=== PATIENT | female | born 1975 | race Caucasian/White ===

== ENCOUNTER 2016-08-22 18:44 | Emergency (ER) | payer SELFPAY ==
--- NOTE | 2016-08-22 18:52 | PDOC ---
Chest Pain HPI - General Chief Complaint: Chest Pain Stated Complaint: CHEST PAIN Date Seen by Provider: 08/22/16 Time Seen by Provider: 18:52 - History of Present Illness Initial Comments: Ms. Chinchilla is a 41-year-old woman coming in today with chest pain. The chest pain occurred yesterday afternoon while at rest. It lasted about half an hour and then went away on its own. Was located over the integrity of the front of her chest radiating to her neck as well as both of her arms. It did not bother her again until today at 4 PM when the chest pain recurred again it was over the entirety of the front of her chest radiating into both upper arms and up into her neck. It was associated with nausea at the time which has since resolved. She never was lightheaded she does not feel diaphoretic. As right now she states that the worst of the pain is over but she still feels a little bit off. She initially went to urgent care here in [place] and they had a troponin tested there that was around 5 and so they transferred her here for further evaluation and care. Her EKG at the outside facility did not show any ST segment elevations but she did have a Q waves in leads 3 it's unknown if these are new or chronic. They initially gave her a GI cocktail for her symptoms which didn't do a whole lot. When the troponin came back elevated, they gave her 4 baby aspirins. EMS gave her 1 nitroglycerin and at this point in time she is basically chest pain-free. She has no prior history of heart disease - Patient Home Medications Home Medications: Home Medications NK [No Home Medications Reported] 08/22/16 - Patient Allergies Allergies/Adverse Reactions: Allergies Allergy/AdvReac Type Severity Reaction Status Date / Time No Known Allergies Allergy Verified 08/22/16 19:05 Past Medical History - heen HEENT History: Denies History Cardiovascular History: Denies History Respiratory History: Denies History Gastrointestinal History: Denies History Genitourinary History: Denies History Endocrine History: Denies History Musculoskeletal History: Denies History Neurological History: Denies History Blood Disorders: Denies History Cancer History: Denies History Tobacco Use: Never Smoker Alcohol Use: None Substance Use Type: None Additional Family History: Dad had an [place] ROS - Limitations ROS Limitations: No Limitations Constitution: REPORTS: Denies Symptoms Cardiovascular: REPORTS: Chest Pain Respiratory: REPORTS: Denies Resp Symptoms Neurological: REPORTS: Denies Neuro Symptoms Gastrointestinal: REPORTS: Denies GI Symptoms Endocrine: REPORTS: Denies Symptoms Musculoskeletal: REPORTS: Denies MS Symptoms Genitourinary: REPORTS: Denies Symptoms Eyes: REPORTS: Denies Symptoms ENT: REPORTS: Denies Symptoms Skin: REPORTS: Denies Skin Symptoms Lympathic: REPORTS: Denies Lympathic Symptoms Immunologic: POSITIVE: Denies Symptoms Psychiatric: POSITIVE: Denies Psych Symptoms Chest Pain PE - General Appearance General Appearance: REPORTS: Alert, Cooperative, No Acute Distress - HEENT HEENT: POSITIVE: Head Inspection Nml, Eyes Inspection Nml, Ears Inspection Nml, Nose Inspection Nml, PERRL, EOMI - Neck Neck: REPORTS: Normal Inspection - Respiratory Respiratory: REPORTS: No Respiratory Distress, Breath Sounds Normal, Chest Non- Tender - Cardiovascular Cardiovascular: REPORTS: Regular Rate and Rhythm, Heart Sounds Normal, Equal Pulses, Strong Pulses Peripheral Pulses: Radial (R): 2+, Radial (L): 2+, Dorsalis-pedis (R): 2+, Dorsalis-pedis (L): 2+ - Abdomen Abdomen: Soft: (All Quadrants), Normal Bowel Sounds: (All Quadrants), Denies Tenderness: (All Quadrants), No Splenomegaly: (All Quadrants), No Hepatomegaly: (All Quadrants) - Skin Skin: REPORTS: Intact, Normal For Race, No Rash - Extremities Extremity: Non-Tender: (All Extremities), Normal ROM: (All Extremities), Normal Inspection: (All Extremities) - Neurological / Psychological Neurological: POSITIVE: Affect 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, 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, 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 Normal As Tested Chest Pain Progress - Results Reviewed by me Lab Results Reviewed: Yes Lab Results:: Laboratory Results 08/22/16 Range/Units 19:02 WBC 10.41 (4.8-10.8) 10^3/uL RBC 5.56 H (4.20-5.40) 10^6/uL Hgb 16.5 H (12.0-16.0) g/dL Hct 45.8 (37.0-47.0) % MCV 82.4 (81-99) FL MCH 29.7 (27-31) PG MCHC 36.0 (33-37) g/dL RDW Std Deviation 38.9 L (39-50) fL RDW Coeff of Calli 12.9 (11.5-14.5) % Plt Count 260 (140-350) 10*3/uL MPV 11.3 (7.4-12.2) FL Immature Gran % (Auto) 0.2 (0-5) % Neut % (Auto) 69.4 (50-80) % Lymph % (Auto) 22.3 (10-50) % [place] % (Auto) 6.7 (5-15) % Eos % (Auto) 0.9 (0-8) % Baso % (Auto) 0.5 (0-1) % Immature Gran # (Auto) 0.02 10*3/UL Neut # (Auto) 7.23 10*3/UL Lymph # (Auto) 2.32 10*3/uL [place] # (Auto) 0.70 (0.3-0.8) 10*3/UL Eos # (Auto) 0.09 10*3/UL Baso # (Auto) 0.05 10*3/UL WBC Morphology Comment Normal morphology (NORM) Plt Morphology Comment Normal morphology (NORM) RBC Morph Comment Normal morphology (NORM) Sodium 137 (135-145) meq/L Potassium 3.8 (3.8-5.2) meq/L Chloride 104 (98-112) meq/L Carbon Dioxide 22 L (23-33) meq/L Anion Gap 11 (5-20) BUN 13 (7-22) mg/dL Creatinine 0.8 (0.50-1.20) mg/dL Estimated GFR > 60 (>60 ml/min/1.73m(2)) BUN/Creatinine Ratio 16.25 (6-20) Glucose 94 (78-110) mg/dL Calculated Osmolality 283.0 (267-292) mOsm/kg Calcium 9.3 (8.7-10.7) mg/dL Total Bilirubin 0.7 (0.3-1.2) mg/dL AST 45 H (8-39) IU/L ALT 33 (9-52) IU/L Alkaline Phosphatase 63 (38-126) IU/L Troponin I 5.630 H* (< 0.040) ng/mL Total Protein 7.7 (6.1-8.0) g/dL Albumin 4.8 (3.5-4.8) g/dL Globulin 2.9 (2.50-4.10) g/dL Albumin/Globulin Ratio 1.60 (1.3-2.0) mg/g EKG Interpreted/Reviewed By Me:: Yes (NSR, q waves in III) - Patient's Progress MDM / ED Course: Ms. Chinchilla is a 41-year-old woman coming in today with an N STEMI. She has an elevated troponin as well as a history of recent chest pain. Chest pain is currently controlled. We started her on heparin drip she only got aspirin and nitroglycerin prior to arrival. I spoke with Dr. Michel [facility] who accepted the patient for direct transfer patient was updated on these develop and some voiced her understanding and she was transferred from the emergency department in stabilized but still relatively guarded condition - Consult Consult (If Yes, Name of Consulting MD & Time Called): Yes (19:35 - cardiology, Dr Michel at [facility]) Consulting MD will see pt:: POSITIVE: Recommended Transfer Counseled: POSITIVE: Patient Patient Care Time - Estimated PCT Patient Care Time (In Minutes): 30 Vital Signs - Recent Vital Signs Vital Signs: Vital Signs (Last 8 hours) Pulse 08/22/16 18:45 88 - VS Reviewed Vital Signs Reviewed: Yes Critical Care Note - Critical Care Note Total Time (mins): 30 Critical Care: Circulatory Failure Risk, Interpretation of Labs - Management Adjusted Based on Results History Source: Family Discussion with [employer] Photographs: Dr Michel, cardiology, [facility] Discharge Clinical Impression: NSTEMI (non-ST elevated myocardial infarction) Discharge Disposition: Transferred to Tertiary Care Facility ([id number], [id number]) Condition: Serious Date Decision to Transfer to Another Facility: 08/22/16 Time Decision to Transfer to Another Facility: 19:44
[2016-08-22] MEDS ORDERED: ONDANSETRON 4 MG/2 ML VIAL IVP ONE (18:54)
[2016-08-22] MEDS ORDERED: NORMAL SALINE 10 ML SYRINGE FLUSH IVP PRN (18:54)
[2016-08-22] MEDS ORDERED: Sodium Chloride 0.9% 1,000 ML PRIMARY IV ONE (18:54)
[2016-08-22] MEDS ORDERED: MORPHINE SULFATE 2 MG/1 ML IVP ONE (18:54)
[2016-08-22 19:01] LABS: BASOPHILS # (AUTO) 0.05 10*3/UL; BASOPHILS % (AUTO) 0.5 % (0-1); EOSINOPHILS # (AUTO) 0.09 10*3/UL; EOSINOPHILS % (AUTO) 0.9 % (0-8); HEMATOCRIT 45.8 % (37.0-47.0); HEMOGLOBIN 16.5 g/dL (12.0-16.0); LYMPHOCYTES # (AUTO) 2.32 10*3/uL; MEAN CORPUSCULAR HEMOGLOBIN 29.7 PG (27-31); MEAN CORPUSCULAR VOLUME 82.4 FL (81-99); MEAN PLATELET VOLUME 11.3 FL (7.4-12.2); MONOCYTES % (AUTO) 6.7 % (5-15); NEUTROPHILS # (AUTO) 7.23 10*3/UL; NEUTROPHILS % (AUTO) 69.4 % (50-80); RED BLOOD COUNT 5.56 10^6/uL (4.20-5.40)
--- NOTE | 2016-08-22 19:01 | EKG ---
[address] [address] Measurements Intervals [place] Rate: 80 P: 152 [place]: 101 QRS: 146 QRSD: 88 T: 0 QT: 396 QTc: 432 Interpretive Statements ECTOPIC ATRIAL RHYTHM WITH SHORT [place] INTERVAL POSSIBLE LEFT ATRIAL ENLARGEMENT [-0.1mV P WAVE IN V1/V2] POSSIBLE RIGHT VENTRICULAR HYPERTROPHY [SOME/ALL OF: PROMINENT R IN V1, LATE TRANSITION, RAD, KANU, SSS] MINIMAL ST DEPRESSION [0.025+ mV ST DEPRESSION] Compared to ECG 08/22/2016 16:55:13 Ectopic atrial rhythm now present Short KS interval now present ST (T wave) deviation now present Sinus rhythm no longer present T-wave abnormality no longer present Electronically Signed On 08-23-16 08:11:02 MDT by Jared Garcia MD [email or web address]
[2016-08-22 19:02] LABS: PLATELET MORPHOLOGY COMMENT NORMAL MORPHOLOGY (NORM); RBC MORPHOLOGY COMMENT NORMAL MORPHOLOGY (NORM); WBC MORPHOLOGY COMMENT NORMAL MORPHOLOGY (NORM)
[2016-08-22 19:07] LABS: BLOOD UREA NITROGEN 13 mg/dL (7-22); BUN/CREATININE RATIO 16.25 (6-20); CALCIUM 9.3 mg/dL (8.7-10.7); EST GLOMERULAR FILTRATION > 60 (>60 ml/min/1.73m(2)); SERUM ALBUMIN 4.8 g/dL (3.5-4.8)
[2016-08-22] MEDS ORDERED: HEPARIN 5000 UNIT/1 ML ONE (19:35)
[2016-08-22] MEDS ORDERED: HEPARIN 5000 UNIT/1 ML IV ONE (19:36)
[2016-08-22 19:40] LABS: VENOUS PH 7.36 (7.32-7.42)
--- NOTE | 2016-08-22 20:37 | DI ---
AP CHEST X-RAY, 08/22/2016 6:54 PM : Clinical History: Chest pain. Previous Exam: Earlier today at 1728 hours. There is no acute soft tissue or bony abnormality. There is a density just above the right costophren ic angle that probably represents a summation artifact. This density was not present on the film obta ined earlier today. Heart size is normal. Lungs are clear. Mediastinal structures are normal. There h as been no change. Readin. Normal chest x-ray. There has been no significant interval change. 2. The density above the right costophrenic angle probably represents a summation artifact or a dens ity in the soft tissues. If a definitive explanation and identification of this density is required, then a CT scan of the chest would be the optimal choice to clarify this finding.
[2016-08-22 20:45] VITALS: RESP 18; TEMP 98.5
== END 2016-08-22 20:13 | disposition short-term general hospital (02) ==
LOC: ER 18:44
DX: I21.4 Non-ST elevation (NSTEMI) myocardial infarction (principal); M54.2 Cervicalgia; R79.1 Abnormal coagulation profile; R07.9 Chest pain, unspecified
CPT/HCPCS: 36415; 71010; 80053; 82803; 84484; 85025; 85730; 93005; 93010; 96361; 96365; 96375; 99291 ×2; J1644; J2270; J2405; 99284; J7030

== ENCOUNTER → 2016-08-22 | Outpatient (CLI) | payer SELFPAY ==
--- NOTE | 2016-08-22 16:55 | EKG ---
[address] [address] Measurements Intervals [place] Rate: 85 P: 77 SC: 137 QRS: 91 QRSD: 89 T: 39 QT: 376 QTc: 418 Interpretive Statements SINUS RHYTHM BORDERLINE RIGHT AXIS DEVIATION [QRS AXIS > 90] NONSPECIFIC ST & T-WAVE ABNORMALITY No previous ECG available for comparison and no acute changes Electronically Signed On 08-23-16 08:09:34 MDT by Jared Garcia MD [email or web address]
[2016-08-22 17:30] LABS: BASOPHILS # (AUTO) 0.05 10*3/UL; BASOPHILS % (AUTO) 0.6 % (0-1); EOSINOPHILS # (AUTO) 0.17 10*3/UL; EOSINOPHILS % (AUTO) 1.9 % (0-8); HEMATOCRIT 48.4 % (37.0-47.0); HEMOGLOBIN 17.1 g/dL (12.0-16.0); LYMPHOCYTES # (AUTO) 2.86 10*3/uL; MEAN CORPUSCULAR HEMOGLOBIN 29.1 PG (27-31); MEAN CORPUSCULAR HGB CONC 35.3 g/dL (33-37); MEAN CORPUSCULAR VOLUME 82.3 FL (81-99); MEAN PLATELET VOLUME 11.2 FL (7.4-12.2); MONOCYTES # (AUTO) 0.66 10*3/UL (0.3-0.8); MONOCYTES % (AUTO) 7.3 % (5-15); NEUTROPHILS # (AUTO) 5.23 10*3/UL; NEUTROPHILS % (AUTO) 58.2 % (50-80); RED BLOOD COUNT 5.88 10^6/uL (4.20-5.40)
[2016-08-22 17:33] LABS: PLATELET MORPHOLOGY COMMENT NORMAL MORPHOLOGY (NORM); RBC MORPHOLOGY COMMENT NORMAL MORPHOLOGY (NORM); WBC MORPHOLOGY COMMENT NORMAL MORPHOLOGY (NORM)
[2016-08-22 17:39] LABS: BLOOD UREA NITROGEN 15 mg/dL (7-22); BUN/CREATININE RATIO 18.75 (6-20); CALCIUM 9.5 mg/dL (8.7-10.7); EST GLOMERULAR FILTRATION > 60 (>60 ml/min/1.73m(2))
--- NOTE | 2016-08-22 19:07 | DI ---
PA /LATERAL CHEST X-RAY, 08/22/2016 4:45 PM : Clinical History: Chest pain. Previous Exam: None at this facility. There is no acute soft tissue or bony abnormality. Heart size is normal. Lungs are clear. Mediastinal structures are normal. There are no pulmonary nodules. Reading: Normal chest x-ray.
== END ==
LOC: EKG 16:47
PROVIDERS: ATTEND Physician Assistant Medical
DX: R07.9 Chest pain, unspecified (principal); I21.4 Non-ST elevation (NSTEMI) myocardial infarction
CPT/HCPCS: 36415; 71020; 80048; 84484; 85025; 93005; 93010

== ENCOUNTER → 2016-09-17 | Outpatient (CLI) | payer SELFPAY ==
[2016-09-17 09:49] LABS: BASOPHILS # (AUTO) 0.02 10*3/UL; BASOPHILS % (AUTO) 0.3 % (0-1); EOSINOPHILS # (AUTO) 0.12 10*3/UL; HEMATOCRIT 42.9 % (37.0-47.0); HEMOGLOBIN 15.3 g/dL (12.0-16.0); LYMPHOCYTES # (AUTO) 1.93 10*3/uL; MEAN CORPUSCULAR HEMOGLOBIN 29.9 PG (27-31); MEAN CORPUSCULAR HGB CONC 35.7 g/dL (33-37); MEAN PLATELET VOLUME 11.1 FL (7.4-12.2); MONOCYTES # (AUTO) 0.51 10*3/UL (0.3-0.8); MONOCYTES % (AUTO) 8.7 % (5-15); NEUTROPHILS # (AUTO) 3.28 10*3/UL; NEUTROPHILS % (AUTO) 56.1 % (50-80); PLATELET MORPHOLOGY COMMENT NORMAL MORPHOLOGY (NORM); RBC MORPHOLOGY COMMENT NORMAL MORPHOLOGY (NORM); RED BLOOD COUNT 5.11 10^6/uL (4.20-5.40); WBC MORPHOLOGY COMMENT NORMAL MORPHOLOGY (NORM)
[2016-09-17 10:21] LABS: BLOOD UREA NITROGEN 17 mg/dL (7-22); BUN/CREATININE RATIO 24.28 (6-20); CALCIUM 9.1 mg/dL (8.7-10.7); EST GLOMERULAR FILTRATION > 60 (>60 ml/min/1.73m(2))
== END ==
LOC: LAB 09:24
PROVIDERS: ATTEND Family Medicine
DX: I21.4 Non-ST elevation (NSTEMI) myocardial infarction (principal)
CPT/HCPCS: 36415; 80048; 85025